=== PATIENT | female | born 1955 | race Caucasian/White ===

== ENCOUNTER → 2018-03-13 | Outpatient (CLI) | payer BC ==
[~2018-03-13] MED LIST: GADOBENATE DIMEGLUMINE 1 ML IV ONE; LORAZEPAM INJ 2 MG/ML VIAL ONE
[2018-03-13 16:24] LABS: BLOOD UREA NITROGEN 6 mg/dL (7-26); BUN/CREATININE RATIO 9 (6-25); EST GLOMERULAR FILTRATION RATE > 60 ML/MIN (60-)
--- NOTE | 2018-03-14 08:21 | Diagnostic Imaging Report ---
TECHNIQUE: Magnetic resonance imaging of the right KNEE was performed without and with injected contrast. 20 mL multihance HISTORY: knee pain COMPARISON: None available. FINDINGS: LIGAMENTS AND TENDONS: ACL: Intact PCL: Intact Collateral ligaments: Intact Iliotibial band: Unremarkable Popliteal tendon: Intact Extensor mechanism: Intact JOINT: Menisci: Medial: Degeneration with free margin fraying/horizontal tearing. Lateral: Degeneration with free margin fraying/horizontal tearing Articular Cartilage: Medial Compartment: Partial-thickness cartilage loss Lateral Compartment: Partial thickness cartilage loss Patellofemoral Compartment: Partial thickness cartilage loss Joint Fluid: Joint effusion with a partially ruptured Milian's cyst. BONE: Edema within the lateral femoral condyle. No acute fracture. SOFT TISSUES: Otherwise, unremarkable. IMPRESSION: Mild tricompartmental degenerative arthrosis with partial thickness cartilage loss and degenerative free margin fraying/horizontal tearing of the menisci. Joint effusion with a partially ruptured Milian's cyst. Signed by: Dr. Chon Land M.D. on 03/14/2018 8:18 AM
== END ==
LOC: MRI 15:24
PROVIDERS: ATTEND Specialist
DX: R22.41 Localized swelling, mass and lump, right lower limb (principal)
CPT/HCPCS: 36415; 73723; 82565; 84520; J2060

== ENCOUNTER → 2018-03-19 | Day surgery (SDC) | payer BC ==
[2018-03-18 11:18] LABS: ANION GAP 14.4 mmol/L (8-16); BLOOD UREA NITROGEN 7 mg/dL (7-26); BUN/CREATININE RATIO 9 (6-25); CARBON DIOXIDE 32 mmol/L (22-29); CHLORIDE 98 mmol/L (98-107); CREATININE, SERUM 0.74 mg/dL (0.57-1.11); EST GLOMERULAR FILTRATION RATE > 60 ML/MIN (60-); GLUCOSE 102 mg/dL (74-118); POTASSIUM 4.4 mmol/L (3.5-5.1); SODIUM 140 mmol/L (136-145)
--- NOTE | 2018-03-18 11:59 | Diagnostic Imaging Report ---
PROCEDURE: Frontal and lateral views of the chest. COMPARISON: None. INDICATIONS: PRE OPERATIVE CHEST X-RAY FOR SHOULDER SURGERY FINDINGS: Lines/tubes: None. Lungs: The lungs are well inflated and clear. There is no evidence of pneumonia or pulmonary edema. Pleura: There is no pleural effusion or pneumothorax. Heart and mediastinum: The heart and the mediastinum are normal. Bones: No acute bony abnormality. IMPRESSION: 1. No acute cardiopulmonary abnormalities. Pool Spicer M.D. Dictated by: Pool Spicer M.D. on 03/18/2018 at 12:01 Electronically approved by: Pool Spicer M.D. on 03/18/2018 at 12:01
[~2018-03-19] MED LIST changes: +ACETAMINOPHEN 1000 MG/100 ML IV ONE; +ANORO; +ASPIR 8181 MG PO; +CLINDAMYCIN PHOS 900MG/ D5W 50 50 ML IV ONE; +DEXAMETHASONE SOD PHOS INJ 4 MG/ML VIAL ONE; +EPHEDRINE SULFATE INJ 50 MG/10 ML SYR ONE; +FENTANYL CITRATE/PF 100MCG/2 ML INJ ONE; -GADOBENATE DIMEGLUMINE 1 ML IV ONE; +HEPARIN SOD (PORCINE) 1000 UNIT/ML SDV ONE; +HYDROCHLOROTHIA25 MG PO; +KETOROLAC TROMETHAMINE 30 MG/ML VIAL ONE; +LIDOCAINE 2%/ EPINEPHRINE 20ML MDV ONE; +LIDOCAINE HCL 2% LOCAL INJ 5 ML SDV VIAL INJ ONE; -LORAZEPAM INJ 2 MG/ML VIAL ONE; +METOCLOPRAMIDE HCL 10 MG/2ML VIAL ONE; +MIDAZOLAM HCL 2 MG/2 ML VIAL ONE; +NAPROXEN250 MG PO; +ONDANSETRON HCL 4 MG ORAL DISINTEGRATING TAB ONE; +ONDANSETRON HCL INJ 2 MG/ML VIAL ONE; +PAROXETINE HCL20 MG PO; +PHENYLEPHRINE HCL 1% 10 MG/ML VIAL ONE; +PROPOFOL IV EMULSION 10 MG/ML 20 ML VIAL ONE; +ROCURONIUM BROMIDE 10 MG/ML 5ML VIAL ONE; +ROPIVACAINE 0.5% 5 MG/ML 30 ML SDV ONE; +SEVOFLURANE INHAL SOLN 250 ML PEN BTL ONE; +SODIUM CHLORIDE 0.9% 500ML 500 ML ONE; +TRAZODONE HCL50 MG PO; +ZEBETA10 MG PO
--- OUTSIDE RECORDS SUMMARY | 2018-03-19 07:47 | XMS REPORT ---
Author [facility] Address Unknown Phone Unavailable Care Team Providers Care Cco & President Name Role Phone COMPA BURTON Unavailable Unavailable Problems This patient has no known problems. Allergies, Adverse Reactions, Alerts This patient has no known allergies or adverse reactions. Medications This patient has no known medications. Results Test Description Test Time Test Comments Text Results Atomic Results Result Comments CHEST 2 VIEWS [place] [address] Patient Name: JAZMINE RICHMOND MR # : [id number] : 1955 Age/Sex: 62/F Req #: [id number] Adm Physician: Ordered by: ALISHA OREILLY MD Report #: [id number] Location: OR Room/Bed: Procedure: [id number] DX/ CHEST 2 VIEWS Exam Date: 03/18/18 Exam Time: 1140 REPORT STATUS: Signed PROCEDURE: Frontal and lateral views of the chest. COMPARISON: None. INDICATIONS: PRE OPERATIVE CHEST X-RAY FOR SHOULDER SURGERY FINDINGS: Lines/tubes: None. Lungs: The lungs are well inflated and clear. There is no evidence of pneumonia or pulmonary edema. Pleura: There is no pleural effusion or pneumothorax. Heart and mediastinum: The heart and the mediastinum are normal. Bones: No acute bony abnormality. IMPRESSION: 1. No acute cardiopulmonary abnormalities. Margaux Spicer M.D. Dictated by : Margaux Spicer M.D. on 03/18/2018 at 12:01 Electronically approved by: Margaux Spicer M.D. on 03/18/2018 at 12:01 Dictated By : MARGAUX SPICER MD 120 Transcribed By: JENNI on 03/18/18 1201 COPY TO: ALISHA OREILLY MD MRI RIGHT KNEE WWO [place] [address] Patient Name: JAZMINE RICHMOND MR #: [id number] : 1955 Age/Sex: 62/F Req #: [id number] Adm Physician: Ordered by: COMPA BURTON MD Report #: [id number] Location: MRI Room/Bed: Procedure: [id number] MRI/MRI RIGHT KNEE WWO Exam Date: Exam Time: REPORT STATUS: Signed TECHNIQUE: Magnetic resonance imaging of the right KNEE was performed without and with injected contrast. 20 mL multihance HISTORY: knee pain COMPARISON: None available. FINDINGS: LIGAMENTS AND TENDONS: ACL: Intact PCL: Intact Collateral ligaments : Intact Iliotibial band: Unremarkable Popliteal tendon: Intact Extensor mechanism: Intact JOINT: Menisci: Medial: Degeneration with free margin fraying/horizontal tearing. Lateral: Degeneration with free margin fraying/horizontal tearing Articular Cartilage: Medial Compartment: Partial-thickness cartilage loss Lateral Compartment: Partial thickness cartilage loss Patellofemoral Compartment: Partial thickness cartilage loss Joint Fluid: Joint effusion with a partially ruptured Milian's cyst. BONE: Edema within the lateral femoral condyle. No acute fracture. SOFT TISSUES: Otherwise, unremarkable. IMPRESSION: Mild tricompartmental degenerative arthrosis with partial thickness cartilage loss and degenerative free margin fraying/horizontal tearing of the menisci. Joint effusion with a partially ruptured Milian's cyst. Signed by: Dr. Bogdan Pan M.D. on 03/14/2018 8:18 AM Dictated By: BOGDAN PAN MD 7 Transcribed By: MEI on 03/14/18817 COPY TO: COMPA BURTON MD
--- NOTE | 2018-03-20 13:19 | Operative Report ---
DATE OF PROCEDURE: March 19, 2018 PREOPERATIVE DIAGNOSES 1. Left shoulder rotator cuff tear. 2. Left shoulder acromioclavicular joint arthritis. POSTOPERATIVE DIAGNOSES 1. Left shoulder synovitis. 2. Left shoulder rotator cuff tear. 3. Left shoulder chondromalacia. 4. Left shoulder acromioclavicular joint arthrosis. PROCEDURES PERFORMED 1. Left shoulder examination under anesthesia. 2. Left shoulder arthroscopy. 3. Left shoulder arthroscopic debridement of synovitis. 4. Left shoulder arthroscopic rotator cuff reconstruction. 5. Left shoulder arthroscopic subacromial decompression and acromioplasty. 6. Left shoulder arthroscopic distal clavicle resection. 7. Left shoulder arthroscopic chondroplasty of the humeral head and glenoid. ASSEMBLER PRODUCT: None. ANESTHESIA: General endotracheal intubation anesthesia. IV FLUIDS: Per the anesthesia record. DESCRIPTION OF PROCEDURE: Ms. Gonzalez was taken to the operating room and placed in the supine position on the operating table. Following induction of general anesthesia as well as endotracheal intubation, the patient's left upper extremity was examined under anesthesia. She was found to have full passive range of motion of the shoulder joint. There was no instability of the shoulder. The patient's upper extremity was prepped and draped in the standard surgical fashion. Standard posterolateral and anterior portals were created without difficulty. The scope was placed within the shoulder joint atraumatically. Examination of the glenohumeral articulation demonstrated chondromalacia of the humeral head and glenoid. There was also synovitis within the shoulder joint. There were no loose bodies in the shoulder. There was a full-thickness rotator cuff tear with minimal retraction. A shaver was placed in the shoulder joint, and synovitis was debrided. Chondroplasties of the humeral head and glenoid were performed at this time. The rotator cuff tear was also debrided. The insertion site for the rotator cuff was also debrided to a bleeding bony bed. The shoulder was deflated of its sterile normal saline. The scope was placed in the subacromial space, and significant bursal inflammation was encountered. A lateral portal was created through an outside-in technique. A shaver was placed in the shoulder joint, and a subacromial decompression was performed. The bursa was resected. This revealed evidence of the patient's rotator cuff tear. Accessory anterolateral portal was created. The insertion site was further debrided to a bleeding bony bed. A single triple-loaded suture anchor was then inserted into the greater tuberosity of the humerus, and the suture arms from that anchor were woven through the rotator cuff tissue. The rotator cuff tissue was then advanced and tied firmly into its normal insertion site. This resulted in complete reapproximation of the rotator cuff to the greater tuberosity. The coracoacromial ligament was resected. An aggressive acromioplasty was performed. The anterior portal was transferred into the subacromial space at the level of the AC joint. A shaver was then used to resect a 1-cm section of the distal clavicle. This was then confirmed by transferring the scope to the anterior portal, looking directly at the AC joint interval. The shoulder was then deflated of its sterile normal saline. The portal sites were closed, and sterile dressings were applied. The patient was provided a shoulder immobilizer, awakened and taken to postanesthesia care unit in stable condition. Job#: [id number]
== END | disposition home or self-care (01) ==
LOC: OR 07:45
PROVIDERS: ATTEND Specialist
CPT/HCPCS: 36415; 71046; 80048; 93005; J1100; J1644; J1885; J2001; J2250; J2370; J2405; J2765; J2795; J7040

== ENCOUNTER → 2018-04-17 | Outpatient (CLI) | payer BC ==
[~2018-04-17] MED LIST changes: -ACETAMINOPHEN 1000 MG/100 ML IV ONE; -CLINDAMYCIN PHOS 900MG/ D5W 50 50 ML IV ONE; -DEXAMETHASONE SOD PHOS INJ 4 MG/ML VIAL ONE; -EPHEDRINE SULFATE INJ 50 MG/10 ML SYR ONE; -FENTANYL CITRATE/PF 100MCG/2 ML INJ ONE; +GADOBENATE DIMEGLUMINE 1 ML IV ONE; -HEPARIN SOD (PORCINE) 1000 UNIT/ML SDV ONE; -KETOROLAC TROMETHAMINE 30 MG/ML VIAL ONE; -LIDOCAINE 2%/ EPINEPHRINE 20ML MDV ONE; -LIDOCAINE HCL 2% LOCAL INJ 5 ML SDV VIAL INJ ONE; -METOCLOPRAMIDE HCL 10 MG/2ML VIAL ONE; -MIDAZOLAM HCL 2 MG/2 ML VIAL ONE; -ONDANSETRON HCL 4 MG ORAL DISINTEGRATING TAB ONE; -ONDANSETRON HCL INJ 2 MG/ML VIAL ONE; -PHENYLEPHRINE HCL 1% 10 MG/ML VIAL ONE; -PROPOFOL IV EMULSION 10 MG/ML 20 ML VIAL ONE; -ROCURONIUM BROMIDE 10 MG/ML 5ML VIAL ONE; -ROPIVACAINE 0.5% 5 MG/ML 30 ML SDV ONE; -SEVOFLURANE INHAL SOLN 250 ML PEN BTL ONE; -SODIUM CHLORIDE 0.9% 500ML 500 ML ONE
--- NOTE | 2018-04-18 10:03 | Diagnostic Imaging Report ---
MRI of the right femur with and without contrast. History: Swelling, mass in the right femur. Knee pain. Decreased range of motion. Technique: Multiplanar multisequence MRI of the right femur with and without intravenous contrast. 20 cc IV gadolinium contrast material was administered. Findings: There is a 10 cm lobulated septated Milian's cyst containing debris. This is best seen on sagittal series 6 image 16. This projects superiorly along the posterior aspect of the distal femur. There is a knee joint effusion and synovitis. There is no acute fracture, subluxation or avascular necrosis. Small nonspecific inguinal lymph nodes are seen. The visualized muscles are normal in size, signal intensity and morphology. The visualized neurovascular bundles are intact. Impression: 10 cm lobulated septated Milian's cyst containing debris which projects superiorly along the posterior aspect of the distal femur. Signed by: Dr. Aaron Dickey M.D. on 04/18/2018 9:59 AM
== END ==
LOC: MRI 07:23
PROVIDERS: ATTEND Specialist
DX: R22.41 Localized swelling, mass and lump, right lower limb (principal)